=== PATIENT | female | born 1985 | race American Indian/Alaskan Native ===

== ENCOUNTER 2025-01-16 11:31 | Emergency (ER) | payer OTHER, MEDICAID ==
[2025-01-16 11:56] VITALS: BP 137/93; PULSE 71
== END 2025-01-16 12:15 | disposition home or self-care (01) ==
LOC: DL.ED 11:31
DX: O9A.219 Injury, poisoning and certain other consequences of external causes complicating pregnancy, unspecified trimester (principal); S61.217A Laceration without foreign body of left little finger without damage to nail, initial encounter; W26.8XXA Contact with other sharp object(s), not elsewhere classified, initial encounter; Y93.89 Activity, other specified; Y99.0 Civilian activity done for income or pay
CPT/HCPCS: 12001; 99282